=== PATIENT | female | born 1990 | race Caucasian/White ===

== ENCOUNTER → 2018-09-27 | Outpatient (CLI) | payer OTHER ==
--- NOTE | 2018-09-27 15:52 | Diagnostic Imaging Report ---
INDICATION: Continued pelvic pain since delivery of baby eight months ago. TECHNIQUE: AP and lateral views of the sacrum and coccyx, 3:25 p.m. CORRELATION STUDY: None. FINDINGS: There is slight acute anterior angulation at the most distal tip of the coccyx. The alignment of the sacrum and coccyx is otherwise unremarkable. SI joints appearing unremarkable. Calcification in the left hemipelvis is likely vascular and of no significance. Partially visualized bilateral hip joints are unremarkable. IMPRESSION: 1. Relatively unremarkable examination of the sacrum and coccyx. Dictated by: Dictated on workstation # [id number]
== END ==
LOC: RAD FS 15:16
PROVIDERS: ATTEND Family Medicine
DX: M53.3 Sacrococcygeal disorders, not elsewhere classified (principal); R10.2 Pelvic and perineal pain
CPT/HCPCS: 72220

== ENCOUNTER → 2020-06-11 | Outpatient (CLI) | payer OTHER ==
[2020-06-11 16:46] LABS: HEMOGLOBIN 13.5 G/DL (11.5-16.0); MEAN PLATELET VOLUME 9.7 FL (7.4-10.4); WHITE BLOOD COUNT 7.5 10^3/uL (4.3-11.0)
[2020-06-11 17:06] LABS: ALANINE AMINOTRANSFERASE 16 U/L (0-55); ALBUMIN 4.8 GM/DL (3.2-4.5); ALKALINE PHOSPHATASE 52 U/L (40-136); BILIRUBIN,TOTAL 0.3 MG/DL (0.1-1.0); BUN/CREATININE RATIO 25; CALCIUM 9.5 MG/DL (8.5-10.1); CARBON DIOXIDE 24 MMOL/L (21-32); CHLORIDE 102 MMOL/L (98-107); CREATININE SERUM 0.68 MG/DL (0.60-1.30); GFR ESTIMATED > 60; GLUCOSE 92 MG/DL (70-105); SODIUM 137 MMOL/L (135-145); TOTAL PROTEIN 7.9 GM/DL (6.4-8.2)
== END ==
LOC: LAB FS 16:26
PROVIDERS: ATTEND Family Medicine
DX: R42 Dizziness and giddiness (principal)
CPT/HCPCS: 36415; 80053; 82607; 84443; 85027

== ENCOUNTER → 2020-06-28 | Outpatient (CLI) | payer OTHER ==
[~2020-06-28] MED LIST: GADOBUTROL 7.5 MMOL/7.5 ML (GADAVIST) VIAL IV ONE
--- NOTE | 2020-06-28 10:46 | Diagnostic Imaging Report ---
CLINICAL INDICATION: Patient has been off balance x6 weeks now. EXAM: MRI of the brain performed without and with 6 cc of Gadavist IV contrast. Sequences include axial DWI, ADC map, axial gradient echo, axial T2, axial FLAIR, axial T1, axial T1 post IV contrast, coronal T1 fat-sat post IV contrast, and sagittal T1 post IV contrast. COMPARISON: None. FINDINGS: There is no abnormal IV contrast enhancement. There is no evidence of acute cerebral infarct, intracranial hemorrhage, brain herniation or midline shift. There is a 1.3 cm x 1.0 cm x 0.8 cm (AP x Trans x CC) high T2, low T1 cystic structure involving the medial left temporal lobe region which is suspected to represent a choroid cyst. There is no abnormal enhancement seen in the region. This cystic structure appears to be extra-axial and causes minimal mass effect upon the medial left temporal lobe region. Otherwise, the brain parenchyma is unremarkable with normal hopson/ white matter distinction. There is no significant architectural distortion, midline shift, or herniation. There is no abnormal IV contrast enhancement or diffusion restriction signal changes. There is no hydrocephalus. Basal cisterns are unremarkable. The [place] vascular structures show no gross abnormality as visualized. The pituitary gland, sella, and suprasellar regions are unremarkable as visualized. Paranasal sinuses and mastoid air cells are clear. IMPRESSION: 1: There is no evidence of acute intracranial process. 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 Otherwise, unremarkable MRI of the brain. Dictated by: Dictated on workstation # [id number]
== END ==
LOC: RAD 09:11
PROVIDERS: ATTEND Family Medicine
DX: R42 Dizziness and giddiness (principal); R26.89 Other abnormalities of gait and mobility
CPT/HCPCS: 70553

== ENCOUNTER → 2020-07-30 | Outpatient (CLI) | payer OTHER ==
--- NOTE | 2020-07-30 16:12 | Diagnostic Imaging Report ---
INDICATION: Right axillary mass. FINDINGS: Sonographic interrogation of the right axillary region demonstrates a hypoechoic solid-appearing mass with internal vascularity measuring 2.4 x 2.2 x 1.8 cm. No other abnormalities are seen. IMPRESSION: Irregular, solid-appearing mass in the right axilla with internal vascularity. This could potentially represent an abnormal lymph node. A dedicated CT chest may be useful for further evaluation. Dictated by: Dictated on workstation # [id number]
== END ==
LOC: RAD FS 13:55
PROVIDERS: ATTEND Family Medicine
DX: R22.2 Localized swelling, mass and lump, trunk (principal)
CPT/HCPCS: 76881

== ENCOUNTER → 2020-08-02 | Outpatient (CLI) | payer OTHER ==
[~2020-08-02] MED LIST changes: +CATHETER FLUSH 10 ML SYR IV PRN; -GADOBUTROL 7.5 MMOL/7.5 ML (GADAVIST) VIAL IV ONE; +HOLD METFORMIN - RECEIVED CONTRAST 20 ML VIAL IV SCH; +IOHEXOL 350 MG/ML 100 ML (OMNIPAQUE 350) VIAL IV ONE; +NS 100 ML (IVPB) BAG IV ONE
--- NOTE | 2020-08-02 12:43 | Diagnostic Imaging Report ---
CT CHEST W TECHNIQUE: Multiple contiguous axial images were obtained through the chest with the use of intravenous contrast. All CT scans use one or more of the following dose optimizing techniques: automated exposure control, MA and/or KvP adjustment based on a patient size and exam type, or iterative reconstruction. INDICATION: Enlarged right axillary lymph nodes. COMPARISON: None available. FINDINGS: Lungs and airway: No endoluminal nodule within the trachea. No pulmonary mass, nodule, or consolidation. Specifically, there are no features of septic emboli. Pleura: No pleural effusion or pneumothorax. Heart and mediastinum: Thyroid is normal. No supraclavicular lymphadenopathy. No mediastinal, hilar, or juxtaphrenic lymphadenopathy. Heart is normal in size without pericardial effusion. Normal-caliber thoracic aorta. Upper abdomen: No abnormality in the upper abdomen. Musculoskeletal: In the right axilla, there is a superficial complex cystic mass/collection located in subcutaneous fat. This has associated skin thickening and central low attenuation. Overall, the process measures approximately 3.2 x 2.3 cm. There are few mildly enlarged right axillary lymph nodes which are highly likely reactive in nature. IMPRESSION: 1. Complex collection in the right axilla and central low attenuation is likely an abscess. However, if patient does not have clinical signs and symptoms of abscess, primary neoplasm should be considered. If this does not resolve with appropriate management for infection, then follow-up MRI of the right axilla without with IV contrast is suggested. 2. There are a few borderline enlarged right axillary lymph nodes which are highly likely reactive in nature assuming the axillary processes are an abscess. Dictated by: Dictated on workstation # [id number]
== END ==
LOC: RAD FS 08:48
PROVIDERS: ATTEND Family Medicine
DX: R59.9 Enlarged lymph nodes, unspecified (principal)
CPT/HCPCS: 71260

== ENCOUNTER → 2021-10-14 | Outpatient (CLI) | payer OTHER | LOC: LAB FS 13:40 | PROVIDERS: ATTEND Family Medicine | DX: Z34.91 Encounter for supervision of normal pregnancy, unspecified, first trimester (principal) | CPT/HCPCS: 36415; 82105; 82677; 84702; 86336 ==